=== PATIENT | female | born 1935 | race Hispanic/Latino ===

== ENCOUNTER 2024-03-24 10:39 | Outpatient (CLI) | payer MEDICARE ==
[2024-03-24 11:42] LABS: Hematocrit 32.3 % (34.9-44.5); Hemoglobin 10.5 g/dL (12.0-15.5)
[2024-03-24 12:01] LABS: Anion Gap 14 mmol/L (10-20); BUN (Urea Nitrogen) 22 mg/dL (9.8-20.1); Calc. Creatinine Clearance 0 mL/min (70-130); Calcium 9.6 mg/dL (7.8-10.44); Carbon Dioxide 19 mmol/L (23-31); Chloride 107 mmol/L (98-107); Estimated GFR 56; Glucose 156 mg/dL (83-110); Potassium 4.6 mmol/L (3.5-5.1); Sodium 135 mmol/L (136-145)
== END 2024-03-24 10:40 | disposition home or self-care (01) ==
LOC: CSHLAB 10:39
PROVIDERS: ATTEND Specialist
DX: Z01.818 Encounter for other preprocedural examination (principal); J34.3 Hypertrophy of nasal turbinates; J32.4 Chronic pansinusitis; J34.9 Unspecified disorder of nose and nasal sinuses
CPT/HCPCS: 80048; 85014; 85018; 93005; 93010

== ENCOUNTER 2024-03-26 07:34 | Day surgery (SDC) | payer MEDICARE ==
[2024-03-24 11:20] VITALS: BMI 26.9
[2024-03-26] MEDS ORDERED: AFRIN NASAL MIST 15 ML BOT ONE ×2 (08:32→09:12)
[2024-03-26] MEDS ORDERED: Oxymetazoline HCl 0.05% ( 15 ML ) ONE (08:47)
[2024-03-26] MEDS ORDERED: Dexamethasone 4 mg/ml Vial ONE (08:50)
[2024-03-26] MEDS ORDERED: Lidocaine 1% PF 5 ML VIAL ONE (08:50)
[2024-03-26] MEDS ORDERED: Ondansetron PF 4 MG/2 ML Vial ONE (08:50)
[2024-03-26] MEDS ORDERED: PROPOFOL 20 ML ONE (08:50)
[2024-03-26] MEDS ORDERED: fentaNYL 50 mcg/mL 1 mL Vial ONE (08:50)
[2024-03-26] MEDS ORDERED: EPINEPHrine 1 MG/ML VIAL ONE (09:12)
[2024-03-26] MEDS ORDERED: Lidocaine 1% w/Epinephrine 1:200K 30 ML VIAL ONE (09:13)
[2024-03-26] MEDS ORDERED: PHENYLEPHRINE-NS 100 MCG/ML 10 ML SYRINGE ONE (10:21)
== END 2024-03-26 13:00 | disposition home or self-care (01) ==
LOC: CSHSDC 07:34
PROVIDERS: ATTEND Specialist
PROC: 09TV8ZZ Resection of Left Ethmoid Sinus, Via Natural or Artificial Opening Endoscopic (ICD-10-PCS; principal; 2024-03-26)
PROC: 09TW8ZZ Resection of Right Sphenoid Sinus, Via Natural or Artificial Opening Endoscopic (ICD-10-PCS; 2024-03-26)
PROC: 09TX8ZZ Resection of Left Sphenoid Sinus, Via Natural or Artificial Opening Endoscopic (ICD-10-PCS; 2024-03-26)
PROC: 09TQ8ZZ Resection of Right Maxillary Sinus, Via Natural or Artificial Opening Endoscopic (ICD-10-PCS; 2024-03-26)
PROC: 09TR8ZZ Resection of Left Maxillary Sinus, Via Natural or Artificial Opening Endoscopic (ICD-10-PCS; 2024-03-26)
PROC: 09TS8ZZ Resection of Right Frontal Sinus, Via Natural or Artificial Opening Endoscopic (ICD-10-PCS; 2024-03-26)
PROC: 09TT8ZZ Resection of Left Frontal Sinus, Via Natural or Artificial Opening Endoscopic (ICD-10-PCS; 2024-03-26)
PROC: 09TU8ZZ Resection of Right Ethmoid Sinus, Via Natural or Artificial Opening Endoscopic (ICD-10-PCS; 2024-03-26)
PROC: 09TL8ZZ Resection of Nasal Turbinate, Via Natural or Artificial Opening Endoscopic (ICD-10-PCS; 2024-03-26)
PROC: 09TL8ZZ Resection of Nasal Turbinate, Via Natural or Artificial Opening Endoscopic (ICD-10-PCS; 2024-03-26)
DX: J34.3 Hypertrophy of nasal turbinates (principal); J32.4 Chronic pansinusitis; J34.9 Unspecified disorder of nose and nasal sinuses; J01.41 Acute recurrent pansinusitis; I10 Essential (primary) hypertension; K21.9 Gastro-esophageal reflux disease without esophagitis; M06.9 Rheumatoid arthritis, unspecified; F03.90 Unspecified dementia, unspecified severity, without behavioral disturbance, psychotic disturbance, mood disturbance, and anxiety; E03.9 Hypothyroidism, unspecified; F41.9 Anxiety disorder, unspecified; E11.9 Type 2 diabetes mellitus without complications; Z79.85 Long-term (current) use of injectable non-insulin antidiabetic drugs; Z79.899 Other long term (current) drug therapy; Z79.84 Long term (current) use of oral hypoglycemic drugs; Z79.890 Hormone replacement therapy
CPT/HCPCS: 30140; 31240; 31256; 31257; 31276; 61782; J0171; J2405; J2704; J3010; J1100